=== PATIENT | male | born 1950 | race Caucasian/White ===

== ENCOUNTER 2021-05-24 22:39 | Inpatient (IN) | payer MEDICARE ==
[~2021-05-24] VITALS: Ht 170.2 cm; Wt 54.8 kg
[~2021-05-24 22:39] MED LIST: ALBU90OI INH; ANORO ELLIPTA1 EACH INH; Advil200 M1 PO; Albuterol2.5 MG/0.5 INH; BENZ100A PO; GUAI600T33 PO; LEVFLO500 PO; LEVO750 PO; NICO14TP TOP; Prednisone10 MG PO
[2021-05-24 23:46] LABS: Hematocrit 33.6 % (37.0-53.0); Hemoglobin 11.7 g/dL (13.5-17.5); Mean Corpuscular HGB 34.2 pg (26.0-34.0); Mean Corpuscular HGB Conc 34.8 g/dL (31.5-36.5); Mean Corpuscular Volume 98 fL (80-100); Mean Platelet Volume 9.6 fL (9.1-12.4); Platelet Count 357 K/mm3 (150-400); RDW Coefficient Variation 13.1 % (11.7-14.2); RDW Standard Deviation 46.6 fL (35.1-46.3); Red Blood Cell Count 3.42 M/mm3 (4.30-5.90); White Blood Cell Count 22.48 K/mm3 (4.00-11.30)
[2021-05-25 00:06] LABS: Alanine Aminotransfer (ALT/SGP 75 U/L (12-78); Albumin, Blood 2.1 g/dL (3.4-5.0); Albumin/Globulin Ratio 0.6 (0.8-1.8); Alk Phos 366 U/L (50-136); Anion Gap 14 mmol/L (6-16); Aspartate Aminotrans (AST/SGOT 156 U/L (12-37); Bilirubin, Total 1.5 mg/dL (0.1-1.0); Blood Urea Nitrogen 8 mg/dL (8-24); CO2, Blood 23 mmol/L (21-32); Calcium, Blood 7.3 mg/dL (8.5-10.1); Chloride, Blood 95 mmol/L (98-108); Creatinine, Blood 0.61 mg/dL (0.60-1.20); Globulin, Blood 3.8 g/dL (2.2-4.0); Glomerular Filtration Rate >60 (60-); Glucose, Blood 138 mg/dL (70-99); Potassium, Blood 3.7 mmol/L (3.5-5.5); Sodium, Blood 132 mmol/L (136-145); Total Protein, Blood 5.9 g/dL (6.4-8.2); Troponin I 0.019 ng/mL (0.000-0.040)
[2021-05-25 00:08] LABS: BAND PERCENT MAN 10 % (0-8); BASOPHILS PERCENT MAN 0 % (0-2); EOSINOPHILS ABSOLUTE MAN 0.22 K/mm3 (0.00-0.68); EOSINOPHILS PERCENT MAN 1 % (0-6); LYMPHOCYTES ABSOLUTE MAN 0.89 K/mm3 (0.84-5.20); LYMPHOCYTES PERCENT MAN 4 % (21-46); MONOCYTES ABSOLUTE MAN 1.34 K/mm3 (0.16-1.47); MONOCYTES PERCENT MAN 6 % (4-13); SEG NEUTROPHILS PERCENT MAN 79 % (41-73); TOTAL CELLS COUNTED 100
[2021-05-25 01:11] LABS: SARS-Cov-2 (COVID-19) PCR, MMC NEGATIVE (NEGATIVE)
--- NOTE | 2021-05-25 04:03 | NUR ---
PT ARRIVED TO ICU15 VIA GURNEY FROM ED. PT SLID FROM GURNEY TO BED WITHOUT ISSUE. PT ON 4L NC, WHICH IS BASELINE PER PT. HOME O2 WAS RECENTLY ORDERED FOR NIGHTTIME BUT HE HAS BEEN USING IT NIGHT AND DAY FOR INCREASING SOB. PT DENIES PAIN AT THIS TIME. HAS 22G TO L HAND, LR INFUSING. PT ALERT AND ORIENTED, ABLE TO MOVE ALL EXTREMITIES. PT INCONTINENT OF BOWEL AND BLADDER, BASELINE PER PT-USES ATTENDS AT HOME. LUNG CLEAR, FREQUENT CONGESTED, NONPRODUCTIVE COUGH. SKIN C/D/I.
[2021-05-25 05:05] LABS: BASOPHILS ABSOLUTE AUTO 0.03 K/mm3 (0.00-0.23); BASOPHILS PERCENT AUTO 0 % (0-2); EOSINOPHILS PERCENT AUTO 0 % (0-6); Hematocrit 28.4 % (37.0-53.0); IMMATURE GRAN ABSOLUTE AUTO 0.12 K/mm3 (0.00-0.10); IMMATURE GRAN PERCENT AUTO 1 % (0-1); LYMPHOCYTES PERCENT AUTO 3 % (21-46); MONOCYTES PERCENT AUTO 11 % (4-13); Mean Corpuscular HGB 34.8 pg (26.0-34.0); Mean Corpuscular HGB Conc 35.2 g/dL (31.5-36.5); Mean Corpuscular Volume 99 fL (80-100); Mean Platelet Volume 9.7 fL (9.1-12.4); NEUTROPHILS ABSOLUTE AUTO 14.92 K/mm3 (1.96-9.15); NEUTROPHILS PERCENT AUTO 85 % (41-73); Platelet Count 291 K/mm3 (150-400); RDW Coefficient Variation 13.2 % (11.7-14.2); RDW Standard Deviation 47.8 fL (35.1-46.3); Red Blood Cell Count 2.87 M/mm3 (4.30-5.90); White Blood Cell Count 17.57 K/mm3 (4.00-11.30)
[2021-05-25 05:23] LABS: Alanine Aminotransfer (ALT/SGP 61 U/L (12-78); Albumin, Blood 1.7 g/dL (3.4-5.0); Albumin/Globulin Ratio 0.5 (0.8-1.8); Alk Phos 291 U/L (50-136); Anion Gap 8 mmol/L (6-16); Aspartate Aminotrans (AST/SGOT 134 U/L (12-37); Bilirubin, Total 1.6 mg/dL (0.1-1.0); Blood Urea Nitrogen 10 mg/dL (8-24); Bun/Creatinine Ratio 17.8 (12.0-20.0); CO2, Blood 27 mmol/L (21-32); Calcium, Blood 6.8 mg/dL (8.5-10.1); Chloride, Blood 100 mmol/L (98-108); Creatinine, Blood 0.56 mg/dL (0.60-1.20); Globulin, Blood 3.2 g/dL (2.2-4.0); Glomerular Filtration Rate >60 (60-); Glucose, Blood 118 mg/dL (70-99); Potassium, Blood 3.5 mmol/L (3.5-5.5); Sodium, Blood 135 mmol/L (136-145); Total Protein, Blood 4.9 g/dL (6.4-8.2)
--- NOTE | 2021-05-25 08:52 | NUR ---
CARE OF PT ASSUMED AT 0700. PT AWAKE AND ALERT. PT DENIES C/O PAIN. PT DOES FEEL SOB AND HAS SOME DYSPNEA WITH SPEECH. SATS 98% ON 4L VIA N/C. PT HAS A NON-PRODUCTIVE COUGH. LUNGS VERY DIMINISHED T/O W FINE CRACKLES TO MERNA. PT HAS TREMOR TO ARMS, TREMOR NOTED IN BLE WELL. PT STATES THIS IS NORMAL.
[2021-05-25 10:53] LABS: SARS-Cov-2 (COVID-19) PCR, MMC NEGATIVE (NEGATIVE)
--- NOTE | 2021-05-25 12:02 | NUR ---
STAT COVID-[address] JEFF, RESULTS NEG. PT RESTING IN BED. DYSPNEA WITH ANY EXERTION. TREMOR SEVERE, PT AGAINSTATES THIS IS NORMAL. AFTER SENIOR FIRE PROTECTION ENGINEER ASSISTED WITH CLEANING PT(INCONT. OF STOOL) PT C/O WORSENING SOB, PT SITTING UP HIGH IN BED. SATS >95%. RT CALLED, PT RECEIVING UPDRAFT TX NOW.
--- NOTE | 2021-05-25 12:17 | NUR ---
PT WITH LABORED RESP. DIAPHORETIC, HEART RATE 130-140. SCATTERED WHEEZES T/O. DR JEFF CALLED AND NOTIFIED. PT TO BE PLACED ON BIPAP, STEROIDS TO BE ORDERED. RT NOTIFIED.
--- NOTE | 2021-05-25 15:58 | NUR ---
PT DOING MUCH BETTER THIS AFTERNOON. PT RESTING IN BED W O2 VIA N/C AT 4L. PT STILL EXPERIENCES DYSPNEA W EXERTION, BUT RESP ARE NO LONGER LABORED. BIPAP AT BEDSIDE NEEDED. HEART RATE 115-120, SINUS. BP STABLE.
--- NOTE | 2021-05-25 16:51 | NUR ---
PT HAS HAD ONLY ONE WET ATTENDS TODAY. BLADDER SCAN SHOWS NO URINE TO BLADDER. DR JEFF CALLED, 500CC NS BOLUS ORDERED
--- NOTE | 2021-05-25 18:23 | NUR ---
CONDOM CATH PLACED. BOLUS COMPLETE. PT INCONT. OF LOOSE STOOL. ATTENDS CHANGED. PT RESTING IN BED W O2 AT 4L, WAS ABLE TO EAT SOME DINNER. LR INFUSING AT 100CC/HR.
--- NOTE | 2021-05-25 19:53 | NUR ---
ASSUMED CARE PT SITTING UP IN BED WATCHING TV. DENIES PAIN AT THIS TIME. CURRENTLY ON 4L NC, SPO2 98%. BIPAP IN ROOM IF NEEDED FOR SOB. VSS, HR 90-100'S SR-ST ON MONITOR, SBP 100'S. PT DENIES SOB AT THIS TIME. ALERT AND ORIENTED, MOVES ALL EXTREMITIES-ABLE TO REPOSITION SELF NEEDED. DENIES NEEDS AT THIS TIME.
[2021-05-26 03:39] LABS: Source, Urine Clean Catch
[2021-05-26 03:47] LABS: Blood, Urine Neg (Neg); Glucose Qualitative, Urine Neg (Neg); Ketones, Urine 2+ (Neg); Leukocyte Esterase, Urine 1+ (Neg); Nitrite, Urine Neg (Neg); Protein, Urine 1+ (Neg); Specific Gravity, Urine 1.015 (1.003-1.022); Urobilinogen, Urine 1+ (Normal)
[2021-05-26 03:54] LABS: Appearance, Urine Turbid (Clear); Bilirubin, Urine 1+ (Neg); Color, Urine Red (P-Yellow)
[2021-05-26 03:54] LABS: BASOPHILS ABSOLUTE AUTO 0.01 K/mm3 (0.00-0.23); BASOPHILS PERCENT AUTO 0 % (0-2); EOSINOPHILS PERCENT AUTO 0 % (0-6); Hematocrit 28.5 % (37.0-53.0); Hemoglobin 9.9 g/dL (13.5-17.5); IMMATURE GRAN ABSOLUTE AUTO 0.06 K/mm3 (0.00-0.10); IMMATURE GRAN PERCENT AUTO 1 % (0-1); LYMPHOCYTES ABSOLUTE AUTO 0.22 K/mm3 (0.84-5.20); LYMPHOCYTES PERCENT AUTO 2 % (21-46); MONOCYTES ABSOLUTE AUTO 0.57 K/mm3 (0.16-1.47); MONOCYTES PERCENT AUTO 4 % (4-13); Mean Corpuscular HGB 35.2 pg (26.0-34.0); Mean Corpuscular HGB Conc 34.7 g/dL (31.5-36.5); Mean Corpuscular Volume 101 fL (80-100); Mean Platelet Volume 10.1 fL (9.1-12.4); NEUTROPHILS ABSOLUTE AUTO 12.22 K/mm3 (1.96-9.15); NEUTROPHILS PERCENT AUTO 93 % (41-73); Platelet Count 293 K/mm3 (150-400); RDW Coefficient Variation 13.2 % (11.7-14.2); RDW Standard Deviation 49.1 fL (35.1-46.3); Red Blood Cell Count 2.81 M/mm3 (4.30-5.90); White Blood Cell Count 13.08 K/mm3 (4.00-11.30)
[2021-05-26 03:55] LABS: Red Blood Cells, Urine Not Seen /hpf (0-2); White Blood Cells, Urine Rare /hpf (0-5)
[2021-05-26 03:56] LABS: Amorphous Heavy (0-Heavy); Bacteria Rare /hpf; Squamous Epithelial Cells Few /hpf (Few)
[2021-05-26 04:10] LABS: Anion Gap 4 mmol/L (6-16); Blood Urea Nitrogen 11 mg/dL (8-24); Bun/Creatinine Ratio 22.5 (12.0-20.0); CO2, Blood 29 mmol/L (21-32); Calcium, Blood 7.1 mg/dL (8.5-10.1); Chloride, Blood 101 mmol/L (98-108); Creatinine, Blood 0.49 mg/dL (0.60-1.20); Glomerular Filtration Rate >60 (60-); Glucose, Blood 144 mg/dL (70-99); Sodium, Blood 134 mmol/L (136-145)
--- NOTE | 2021-05-26 06:23 | NUR ---
SHIFT SUMMARY PT SITTING UP IN BED AFTER ATTENDS AND GOWN CHANGED THIS AM. PT REPORTS MILD SHORTNESS OF BREATH AFTER ROLLING SIDE TO SIDE, RR 17 SPO2 98%. HR 100'S SINUS TACH ON MONITOR, SBP 130'S. PT REMAINED ON 4L NC T/O NIGHT, DENIED NEED FOR BIPAP. CONDOM CATH IN PLACE DRAINING DARK ALEXIS URINE TO GRAVITY, MINIMAL OUTPUT THIS SHIFT. PT ABLE TO REPOSITION SELF NEEDED, EDUCATED ABOUT NEED TO FREQUENTLY MOVE SELF AROUND TO PREVENT SKIN BREAKDOWN. CALL LIGHT WITHIN REACH.
--- NOTE | 2021-05-26 10:00 | NUR ---
Care Assumed 0700 Pt is A/O X 4. Tremors noted in upper and lower extrems during movement. Pt states, "I have had tremors for years and my father had it too." Pt has incontinence of urine and bowels, per pt this is his baseline. Condom cath in place along with attends. Dark yellow ( 50 mls) of urine in bag. Frequent attends changes due to loose green BM. LR @ 100 ml/hr via Powerglide to ROSIE. Pt denies SOB or other pains. HR 90-110's, elevated when pt is eating or turning. NSR. VSS.
--- NOTE | 2021-05-26 16:43 | NUR ---
Report given to PCU 8 nurse, all questions answered. Will transfer once room cleaned. Pts NC decreased to 3 L, SPO2 99% at 4 L, change made at 1600. Tolerating well. Pt denies SOB. HR 90-110. VSS. at bedside. Condom cath remains in place, 250 urine output. Will transfer via wheelchair.
--- NOTE | 2021-05-26 17:46 | NUR ---
pt arrived via wc form icu pt oriented to room pcu 8 tele placed along with cont biox pt eating dinner pt had loose incont bm green in color chnaged attends
--- NOTE | 2021-05-26 17:54 | NUR ---
Tranfer to [facility] 8 All of patients belongings sent with patient, including medications. Transfer via wheelchair.
[2021-05-27 04:00] LABS: Hematocrit 28.9 % (37.0-53.0); Hemoglobin 9.9 g/dL (13.5-17.5); Mean Corpuscular HGB 34.3 pg (26.0-34.0); Mean Corpuscular HGB Conc 34.3 g/dL (31.5-36.5); Mean Corpuscular Volume 100 fL (80-100); Platelet Count 331 K/mm3 (150-400); RDW Standard Deviation 47.4 fL (35.1-46.3); Red Blood Cell Count 2.89 M/mm3 (4.30-5.90); White Blood Cell Count 14.53 K/mm3 (4.00-11.30)
[2021-05-27 04:21] LABS: Alanine Aminotransfer (ALT/SGP 64 U/L (12-78); Albumin, Blood 1.7 g/dL (3.4-5.0); Albumin/Globulin Ratio 0.5 (0.8-1.8); Alk Phos 228 U/L (50-136); Anion Gap 6 mmol/L (6-16); Aspartate Aminotrans (AST/SGOT 144 U/L (12-37); Bilirubin, Total 1.1 mg/dL (0.1-1.0); Blood Urea Nitrogen 16 mg/dL (8-24); Bun/Creatinine Ratio 32.1 (12.0-20.0); CO2, Blood 28 mmol/L (21-32); Calcium, Blood 7.2 mg/dL (8.5-10.1); Chloride, Blood 100 mmol/L (98-108); Globulin, Blood 3.3 g/dL (2.2-4.0); Glomerular Filtration Rate >60 (60-); Glucose, Blood 118 mg/dL (70-99); Sodium, Blood 134 mmol/L (136-145)
--- NOTE | 2021-05-27 07:55 | NUR ---
SHIFT SUMMARY PT AOX4 THROUGH SHIFT. ON TELE, MAINTAINED LOW 100'S SINUS TACH UNTIL EARLY AM WHEN PT SATS UP AT BEDSIDE AND BECAME SEVERELY DYSPNEIC AND HR INCREASED RAPIDLY FROM LOW 100'S TO 130'S-150'S. AUGUTSUS RT AT BEDSIDE DURING EPISODE TO ADMIN ROUTINE SCHEDULED BREATHING TX. THIS RN HELPS PT BACK TO LYING IN BED AND HR AND BREATHING IMPROVE SHORTLY AFTER REPOSITIONED AND BRIEF/LINEN CHANGE D/T BM. PT DENIES CP THROUGH SHIFT. ON 3 L VIA NC, SATS 96%. LR INFUSING AT 100 MLS/HR PER ORDERS. CONDOM CATH CHANGED BY THIS RN D/T LEAKING, DRAINING CLEAR YELLOW URINE.
--- NOTE | 2021-05-27 19:36 | NUR ---
Duncan said that he had some shortness of breath twice today. Continuous IVF were discontinued this morning at the time that his IV Levaquin was hung, and spoke with Dr. Pemberton about the positive I&O. IV lasix was ordered and given this evening. Heart rate increased to 120s about time that the pt was eating dinner while sitting up in bed; otherwise today it has stayed less than 110.
[2021-05-28 04:49] LABS: Hematocrit 28.1 % (37.0-53.0); Hemoglobin 9.6 g/dL (13.5-17.5); Mean Corpuscular HGB 34.4 pg (26.0-34.0); Mean Corpuscular HGB Conc 34.2 g/dL (31.5-36.5); Mean Corpuscular Volume 101 fL (80-100); Mean Platelet Volume 9.9 fL (9.1-12.4); Platelet Count 340 K/mm3 (150-400); RDW Coefficient Variation 13.2 % (11.7-14.2); RDW Standard Deviation 48.9 fL (35.1-46.3); Red Blood Cell Count 2.79 M/mm3 (4.30-5.90); White Blood Cell Count 13.64 K/mm3 (4.00-11.30)
[2021-05-28 05:08] LABS: Albumin, Blood 1.8 g/dL (3.4-5.0); Anion Gap 5 mmol/L (6-16); Blood Urea Nitrogen 18 mg/dL (8-24); Bun/Creatinine Ratio 33.1 (12.0-20.0); CO2, Blood 29 mmol/L (21-32); Calcium, Blood 7.3 mg/dL (8.5-10.1); Chloride, Blood 102 mmol/L (98-108); Creatinine, Blood 0.54 mg/dL (0.60-1.20); Glomerular Filtration Rate >60 (60-); Glucose, Blood 121 mg/dL (70-99); Phosphorus, Blood 2.4 mg/dL (2.5-4.9); Potassium, Blood 3.8 mmol/L (3.5-5.5); Sodium, Blood 136 mmol/L (136-145)
--- NOTE | 2021-05-28 07:59 | NUR ---
SHIFT SUMMARY PT AOX4, SR 90'S, DENIES CP, SATS 95-98% ON 3 L VIA NC. BREATHING APPEARS LESS LABORED THAN LAST NOC. PT REPORTS SOME SOB AT TIMES, DYSPNEIC W/SOME EXERTION IN BED. STATES BREATHING OTHERWISE FEELS BETTER. PT APPEARS RESTFUL T/O NIGHT. CONDOM CATH CHANGED AND DRAINING ALEXIS URINE. NO EPISODES OF INCONTINENCE OF STOOL. LINES SALINE LOCKED.
--- NOTE | 2021-05-28 08:00 | NUR ---
PT LAYING IN BED WATCHING TV, HE IS TREMOLOUS, A/OX3, PLEASANT AND COOPERATIVE WITH CARE, FOLLOWS COMMANDS WELL, DENIES PAIN, LUNGS HAVE SOME WHEEZING T/O, RESP EVEN AND UNLABORED, NO COUGH NOTED, HRR, TELE IN PLACE RUNNING SR PER MONITOR, SEE STRIP, NO EDEMA NOTED, ppp+1, CAP REFILL <3SEC, VS STABLE, AFEBRILE, IV SITE IS POWER GLIDE TO ROSIE, SITE CLEAR AND PATENT, BTX4, ABD FLAT SOFT NONTENDER, VOIDS WITHOUT DIFF, SKIN C/W/D, MAEW, ALEXANDRA, CALL LIGHT IN REACH.
--- NOTE | 2021-05-28 16:51 | NUR ---
PT HAS BEEN TX TO SURGICAL FLOOR, HE IS BEING TRANSFERED VIA WHEELCHAIR, HE INFORMED HIS . ALL BELONGINGS WENT WITH HIM.
--- NOTE | 2021-05-28 17:05 | NUR ---
pt transferred to room via wheelchair, oriented to room, vss, a/o x 4, pleasant/cooperative, sitting up in chair with warm blanket around shoulders, call light within reach
--- NOTE | 2021-05-28 17:13 | NUR ---
pt's visiting in room
--- NOTE | 2021-05-29 03:16 | NUR ---
EACH TIME PT OOB FOR BSC TACHY UP TO 140-150'S AND SUSTAINING WHILE UP,BUT SETTLES BACK DOWN WHEN RESTING IN BED.PT REPORTS INCREASED SOB WITH ANY ACTIVITY CALLED DR CLOUD AND ADVISED OF ABOVE WITH NO NEW ORDERS RECEIVED.
[2021-05-29 04:19] LABS: Alanine Aminotransfer (ALT/SGP 128 U/L (12-78); Albumin/Globulin Ratio 0.6 (0.8-1.8); Alk Phos 220 U/L (50-136); Anion Gap 6 mmol/L (6-16); Aspartate Aminotrans (AST/SGOT 172 U/L (12-37); Blood Urea Nitrogen 17 mg/dL (8-24); Bun/Creatinine Ratio 32.8 (12.0-20.0); CO2, Blood 29 mmol/L (21-32); Calcium, Blood 7.5 mg/dL (8.5-10.1); Chloride, Blood 102 mmol/L (98-108); Creatinine, Blood 0.52 mg/dL (0.60-1.20); Globulin, Blood 3.2 g/dL (2.2-4.0); Glomerular Filtration Rate >60 (60-); Glucose, Blood 157 mg/dL (70-99); Potassium, Blood 3.9 mmol/L (3.5-5.5); Sodium, Blood 137 mmol/L (136-145); Total Protein, Blood 5.2 g/dL (6.4-8.2)
--- NOTE | 2021-05-29 08:01 | NUR ---
SUMMARY NO ACUTE CHANGES
--- NOTE | 2021-05-29 09:59 | NUR ---
0[facility] report from previous shift RN alex, pt asleep in bed, bed in lowest position, bed rails up x 2, call light within reach, pt a/o x 4, pleasant/cooperative, SOB with exertion 0945- dr modi rounding on pt with doggy daycare activities director. awaiting x-ray study
--- NOTE | 2021-05-29 18:15 | NUR ---
shift summary: vss, no acute changes, pt remaines pleasant/cooperative. pt tolerated PO intake with no n/v. incontinent of bladder in attends. per telemetry pt remains in sinus tachycardia ranging from 115-140, occasional up to 150s, during imaging study up to 175. notified pt remains SOB with any exertion, has been up in chair for the >4 hr this shift, has worked with PT. pt denies pain. lungs remain coarse, unprobuctive cough, expiratory wheezing L side
[2021-05-30 04:40] LABS: Albumin, Blood 2.1 g/dL (3.4-5.0); Anion Gap 7 mmol/L (6-16); Blood Urea Nitrogen 15 mg/dL (8-24); Bun/Creatinine Ratio 27.8 (12.0-20.0); CO2, Blood 30 mmol/L (21-32); Calcium, Blood 7.5 mg/dL (8.5-10.1); Chloride, Blood 101 mmol/L (98-108); Creatinine, Blood 0.54 mg/dL (0.60-1.20); Glomerular Filtration Rate >60 (60-); Glucose, Blood 146 mg/dL (70-99); Phosphorus, Blood 4.3 mg/dL (2.5-4.9); Potassium, Blood 3.2 mmol/L (3.5-5.5); Sodium, Blood 138 mmol/L (136-145)
--- NOTE | 2021-05-30 05:40 | NUR ---
SHIFT SUMMARY PATIENT ALERT AND ORIENTED WHEN AWAKE. SBA WITH FWW TO BATHROOM. 4L O2 VIA NC AT BASELINE. LUNG SOUNDS COARSE THROUGHOUT. OCCASIONALLY INC OF BOWEL. PULL UPS IN PLACE. TELE SINUS TACH 120S. RT FOR NEB TREATMENTS. MANUELITO REPORT TO DAY SHIFT RN.
[2021-05-30 09:12] LABS: Albumin, Blood 2.1 g/dL (3.4-5.0); Albumin/Globulin Ratio 0.6 (0.8-1.8); Bilirubin, Direct 0.5 mg/dL (0.0-0.3); Bilirubin, Indirect 0.5 mg/dL (0.1-0.7); Globulin, Blood 3.3 g/dL (2.2-4.0); Total Protein, Blood 5.4 g/dL (6.4-8.2)
--- NOTE | 2021-05-30 14:56 | NUR ---
Echocardiogram completed.
--- NOTE | 2021-05-30 18:07 | NUR ---
SHIFT SUMMARY PT A&OX4, VSS, TELE 110-120 BPM, 3LNC-MODIFIED BY RT; RT REP PT SHOULD HAVE HOME OXYGEN EVAL ON DAY OF DC TO CONFIRM 3L WORKS WITH EXERTION. AMBULATING W/FWW & SBA TO BRP, VOIDING WELL, BM X2. ECHO DONE TODAY, ALONG WITH ABD ULTRASOUND. WILL REPORT TO ONCOMING NOC RN.
[2021-05-31 05:21] LABS: Alanine Aminotransfer (ALT/SGP 187 U/L (12-78); Albumin/Globulin Ratio 0.7 (0.8-1.8); Alk Phos 186 U/L (50-136); Anion Gap 4 mmol/L (6-16); Aspartate Aminotrans (AST/SGOT 188 U/L (12-37); Bilirubin, Direct 0.4 mg/dL (0.0-0.3); Bilirubin, Indirect 0.5 mg/dL (0.1-0.7); Bilirubin, Total 0.9 mg/dL (0.1-1.0); Blood Urea Nitrogen 14 mg/dL (8-24); Bun/Creatinine Ratio 27.1 (12.0-20.0); CO2, Blood 32 mmol/L (21-32); Calcium, Blood 7.8 mg/dL (8.5-10.1); Chloride, Blood 102 mmol/L (98-108); Creatinine, Blood 0.52 mg/dL (0.60-1.20); Globulin, Blood 2.9 g/dL (2.2-4.0); Glomerular Filtration Rate >60 (60-); Glucose, Blood 85 mg/dL (70-99); Potassium, Blood 3.9 mmol/L (3.5-5.5); Sodium, Blood 138 mmol/L (136-145); Total Protein, Blood 4.9 g/dL (6.4-8.2)
--- NOTE | 2021-05-31 05:59 | NUR ---
SHIFT SUMMARY PATIENT SLEPT OFF AND ON THROUGHOUT SHIFT. ORIENTED WHEN AWAKE. SBA WITH FWW TO BATHROOM. SOB WITH EXP WHEEZE, TACHY ON TELEMETRY. 3L 02 VIA NC. LASIX PRESCRIBED FOR POSSIBLE FLUID OVERLOAD WHILE CHF IS INVESTIGATED BY HOSPITALIST. HOME O2 EVAL NEEDED. RT FOLLOWING FOR BREATHING TREATMENTS. VOIDING WELL, TOLERATING REGULAR DIET AND FLUIDS.
[2021-05-31 07:10] LABS: HBSAG SCREEN Negative (Negative); HEP A AB, IGM Negative (Negative); HEP B CORE AB, IGM Negative (Negative); HEP C VIRUS AB <0.1 (0.0-0.9)
--- NOTE | 2021-05-31 16:03 | NUR ---
SUMMARY: PT IS A/O, VSS. TELE WNL TODAY, HR CONTINUES TO INCREASE WITH ACTIVITY TO 140-[address] PIMENTEL AWARE, PT DENIES CP/PRESSURE. PER CENTRIFUGE OPERATOR, PT RECOVERS WELL AND HAS NOT SUSTAINED HR ABOVE 110. PT DOES GET SOB WITH EXERTION, PT STABLE ON 3L O2 AT THIS TIME. DENIES ANY SPUTUM PRODUCTION. PT ABLE TO WORK WITH THERAPY. LASIX GIVEN X1. PER PT, EDEMA IMPROVING IN LEGS. NO ACUTE SAFETY CONCERNS, WILL CTM
--- NOTE | 2021-06-01 03:43 | NUR ---
SHIFT SUMMARY S/P SEPTIC SHOCK SECONDARY TO PNEUMONIA, A/O X4, VSS, TOLERATING DIET, DENIES PAIN, SBA TO BATHROOM, VOIDING, NO ACUTE EVENTS THIS SHIFT. CALL LIGHT IN REACH, WILL CTM AND REPORT TO DAY RN.
[2021-06-01 06:28] LABS: Hematocrit 28.3 % (37.0-53.0); Hemoglobin 9.5 g/dL (13.5-17.5); Mean Corpuscular HGB 34.2 pg (26.0-34.0); Mean Corpuscular HGB Conc 33.6 g/dL (31.5-36.5); Mean Corpuscular Volume 102 fL (80-100); Mean Platelet Volume 10.4 fL (9.1-12.4); Platelet Count 307 K/mm3 (150-400); RDW Standard Deviation 52.2 fL (35.1-46.3); Red Blood Cell Count 2.78 M/mm3 (4.30-5.90); White Blood Cell Count 12.11 K/mm3 (4.00-11.30)
[2021-06-01 06:51] LABS: Alanine Aminotransfer (ALT/SGP 209 U/L (12-78); Albumin, Blood 1.9 g/dL (3.4-5.0); Albumin/Globulin Ratio 0.7 (0.8-1.8); Alk Phos 179 U/L (50-136); Anion Gap 2 mmol/L (6-16); Aspartate Aminotrans (AST/SGOT 171 U/L (12-37); Bilirubin, Total 1.1 mg/dL (0.1-1.0); Blood Urea Nitrogen 14 mg/dL (8-24); Bun/Creatinine Ratio 23.3 (12.0-20.0); CO2, Blood 37 mmol/L (21-32); Chloride, Blood 97 mmol/L (98-108); Globulin, Blood 2.7 g/dL (2.2-4.0); Glomerular Filtration Rate >60 (60-); Glucose, Blood 81 mg/dL (70-99); Sodium, Blood 136 mmol/L (136-145); Total Protein, Blood 4.6 g/dL (6.4-8.2)
[2021-06-01] MEDS ORDERED: METO25 PO (15:45)
[2021-06-01] MEDS ORDERED: K-Dur 20 meq T20 MEQ PO (15:47)
[2021-06-01] MEDS ORDERED: Prednisone10 MG PO (15:47)
[2021-06-01] MEDS ORDERED: LIQUACEL PO (15:55)
[2021-06-01] MEDS ORDERED: ALBU2.5V5 INH (15:56)
[2021-06-01] MEDS ORDERED: FURO40 PO (15:57)
[2021-06-01] MEDS ORDERED: BUDE.25 INH (15:57)
--- NOTE | 2021-06-01 18:08 | NUR ---
DISCHARGE: PACKET PRINTED AND PT EDUCATED. Pegg'd DC'D WNL. MEDS FAXED TO [facility] IN [place]. PT LEFT UNIT VIA WHEELCHAIR AT ABOUT 1720 WITH OSWALDO HARTMAN.
--- NOTE | 2021-06-01 18:10 | NUR ---
EDIT TO MED REC: EDIT FOR KLAUDIA AND PROBIOTIC FOR PT MED REC FAXED TO [facility] IN [place] AT THIS TIME.
--- NOTE | 2021-06-01 18:13 | NUR ---
PT DAUGHTER MADE AWARE OF ADDED MEDICATIONS TO PT MED REC AT 1813
== END 2021-06-01 17:45 | disposition home health service (06) | DRG 871 ==
LOC: ER 22:39 → ERHOLD 05-25 03:19 → ICUW 05-25 03:19 → PCU 05-26 17:43 → SURS 05-28 16:43
PROVIDERS: Internal Medicine; Student in an Organized Health Care Education/Training Program; ADMIT Family Medicine
DX: A41.9 Sepsis, unspecified organism (principal); J18.9 Pneumonia, unspecified organism; R65.21 Severe sepsis with septic shock; I50.31 Acute diastolic (congestive) heart failure; J44.0 Chronic obstructive pulmonary disease with (acute) lower respiratory infection; J44.1 Chronic obstructive pulmonary disease with (acute) exacerbation; E87.1 Hypo-osmolality and hyponatremia; J96.11 Chronic respiratory failure with hypoxia; E44.0 Moderate protein-calorie malnutrition; R64 Cachexia; E87.2 Acidosis; Z20.822 Contact with and (suspected) exposure to COVID-19; R74.01 Elevation of levels of liver transaminase levels; E88.09 Other disorders of plasma-protein metabolism, not elsewhere classified; D64.9 Anemia, unspecified; G25.0 Essential tremor; T36.8X5A Adverse effect of other systemic antibiotics, initial encounter; K76.0 Fatty (change of) liver, not elsewhere classified; E87.6 Hypokalemia; Z90.89 Acquired absence of other organs; Z87.891 Personal history of nicotine dependence; Z99.81 Dependence on supplemental oxygen; Z79.899 Other long term (current) drug therapy
CPT/HCPCS: 36415; 71045; 71046; 71260; 74177; 76705; 80048; 80053; 80069; 80074; 80076; 81001; 82248; 82947; 83605; 83880; 84100; 84484; 85025; 85027; 87040; 87086; 87449; 93005; 93010; 93306; 94640; 94660; 94664; 94760; 94762; 96365; 97110; 97116; 97162; 97530; 99285-25; A9270; C1751; J0696; J1650; J1940; J1956; J2060; J2920; J2930; J7030; J7050; J7120; J7512; Q9967; U0004

== ENCOUNTER 2021-11-21 15:14 | Inpatient (IN) | payer MEDICARE ==
[~2021-11-21] VITALS: Ht 170.2 cm; Wt 45.9 kg
[~2021-11-21 15:14] MED LIST changes: +ALBU2.5V5 INH; +BUDE.25 INH; +FURO40 PO; +K-Dur 20 meq T20 MEQ PO; +LIQUACEL PO; +METO25 PO
[2021-11-21 16:02] LABS: BASOPHILS ABSOLUTE AUTO 0.07 K/mm3 (0.00-0.23); BASOPHILS PERCENT AUTO 0 % (0-2); EOSINOPHILS ABSOLUTE AUTO 0.01 K/mm3 (0.00-0.68); EOSINOPHILS PERCENT AUTO 0 % (0-6); Hematocrit 31.8 % (37.0-53.0); Hemoglobin 10.7 g/dL (13.5-17.5); IMMATURE GRAN ABSOLUTE AUTO 0.15 K/mm3 (0.00-0.10); IMMATURE GRAN PERCENT AUTO 1 % (0-1); LYMPHOCYTES ABSOLUTE AUTO 0.66 K/mm3 (0.84-5.20); LYMPHOCYTES PERCENT AUTO 3 % (21-46); MONOCYTES ABSOLUTE AUTO 1.72 K/mm3 (0.16-1.47); MONOCYTES PERCENT AUTO 7 % (4-13); Mean Corpuscular HGB 33.1 pg (26.0-34.0); Mean Corpuscular HGB Conc 33.6 g/dL (31.5-36.5); Mean Corpuscular Volume 99 fL (80-100); Mean Platelet Volume 10.4 fL (9.1-12.4); NEUTROPHILS ABSOLUTE AUTO 20.67 K/mm3 (1.96-9.15); NEUTROPHILS PERCENT AUTO 89 % (41-73); Platelet Count 737 K/mm3 (150-400); RDW Coefficient Variation 13.7 % (11.7-14.2); RDW Standard Deviation 49.6 fL (35.1-46.3); Red Blood Cell Count 3.23 M/mm3 (4.30-5.90); White Blood Cell Count 23.28 K/mm3 (4.00-11.30)
[2021-11-21 16:44] LABS: Alanine Aminotransfer (ALT/SGP 22 U/L (12-78); Albumin/Globulin Ratio 0.4 (0.8-1.8); Alk Phos 245 U/L (50-136); Anion Gap 11 mmol/L (6-16); Aspartate Aminotrans (AST/SGOT 103 U/L (12-37); Bilirubin, Total 1.8 mg/dL (0.1-1.0); Blood Urea Nitrogen 13 mg/dL (8-24); Bun/Creatinine Ratio 19.3 (12.0-20.0); CO2, Blood 24 mmol/L (21-32); Calcium, Blood 8.2 mg/dL (8.5-10.1); Chloride, Blood 97 mmol/L (98-108); Creatinine, Blood 0.67 mg/dL (0.60-1.20); Globulin, Blood 4.9 g/dL (2.2-4.0); Glomerular Filtration Rate >60 (60-); Glucose, Blood 157 mg/dL (70-99); Sodium, Blood 132 mmol/L (136-145); Total Protein, Blood 6.9 g/dL (6.4-8.2)
[2021-11-21 17:09] LABS: Influenza A, PCR NEGATIVE (NEGATIVE); Influenza B, PCR NEGATIVE (NEGATIVE); Resp Syncytial Virus, PCR NEGATIVE (NEGATIVE)
[2021-11-21 17:47] LABS: SARS-Cov-2 (COVID-19) PCR, MMC POSITIVE (NEGATIVE)
--- NOTE | 2021-11-21 23:11 | NUR ---
ADMIT NOTE 71 YR OLD MALE ADMITTED TO FLOOR FROM THE ED WITH DV OF COVID 19. ALERT AND ORIENTED. IV ANTIBIOTICS, ECT INFUSING. ORIENTED TO USE OF CALL LIGH, CALL LIGHT IN REACH. INSTRUCTED NOT TO GET OUT OF BED WITHOUT STAFF AT BEDESIDE FIRST. PT APPEARS VERY MALNOURISHED. VOICED SEVERE POOR APPETITE. ISOLATION PRECAUTIONS INITIATED.
--- NOTE | 2021-11-22 01:48 | NUR ---
RN SCHOOL REPORTS INTERMITTENT FAST AND SLOW HR. PT ASYMPTOMATIC, VOICED FEELIING OK. WILL MONITOR
--- NOTE | 2021-11-22 04:12 | NUR ---
GENERAL MAINTENANCE HELPER SUMMARY WAS ADMITTED EARLIER WITH DX OF SEPSIS, PNEUMONIA AND COVID 19 POSITIVE. STATED HADNT BEEN VACCINATED AND IS A REGULAR SMOKER. PLACED ON ISOLATION PRECAUTIONS. O2 PER NC AT 3L/MIN - BASE LINE. ORIENTED TO USE OF CALL LIGHT AND NOT TO GET OUT OF BED DUE TO POSSIBLE FALLS DUE TO WEAKNESS. HAS BEEN RESTING QUIETLY WITH FEW INTERRUPTIONS SINCE HS. IVF, ANTIBIOTICS AND ANTIVIRAL MEDS ADMINISTERED - SEE DEC FOR DETAILS. CALL LIGHT IN REACH
[2021-11-22 05:19] LABS: Hematocrit 28.3 % (37.0-53.0); Hemoglobin 9.4 g/dL (13.5-17.5); Mean Corpuscular HGB 32.9 pg (26.0-34.0); Mean Corpuscular HGB Conc 33.2 g/dL (31.5-36.5); Mean Corpuscular Volume 99 fL (80-100); Mean Platelet Volume 10.5 fL (9.1-12.4); Platelet Count 530 K/mm3 (150-400); RDW Coefficient Variation 13.7 % (11.7-14.2); RDW Standard Deviation 49.9 fL (35.1-46.3); Red Blood Cell Count 2.86 M/mm3 (4.30-5.90); White Blood Cell Count 15.06 K/mm3 (4.00-11.30)
[2021-11-22 05:55] LABS: Anion Gap 7 mmol/L (6-16); Blood Urea Nitrogen 14 mg/dL (8-24); CO2, Blood 27 mmol/L (21-32); Chloride, Blood 99 mmol/L (98-108); Creatinine, Blood 0.88 mg/dL (0.60-1.20); Glomerular Filtration Rate >60 (60-); Glucose, Blood 131 mg/dL (70-99); Potassium, Blood 4.3 mmol/L (3.5-5.5); Sodium, Blood 133 mmol/L (136-145)
--- NOTE | 2021-11-22 17:31 | NUR ---
PATIENT IS AWAKE,ALET AND ORIENTED TIMES THREE. PATIENT IS ON OYGEN 2L NC O2 SAT 100%. PATIENT LE PAIN. PATIENT GRANDDAUGHTER WAS UPDATED PER PATIENT REQUEST.
--- NOTE | 2021-11-23 04:34 | NUR ---
PT RESTING IN BED. REMAINS IN COVID ISOLATION. CONTINUE REMDESIVIR AND IV ANTIBIOTICS. PULM AND PALLIATIVE CARE CONSULTS. REMAINS ON O2 3L NC. STILL NEED SPUTUM SAMPLE. PT REQUESTED PRN BREATHING TREATMENTS, STATED HE DOES THEM AT HOME 3-4 TIMES A DAY. UP TO BSC, INDEPENDENTLY. CONTINUE POC.
[2021-11-23 08:08] LABS: BASOPHILS ABSOLUTE AUTO 0.02 K/mm3 (0.00-0.23); BASOPHILS PERCENT AUTO 0 % (0-2); EOSINOPHILS ABSOLUTE AUTO 0.01 K/mm3 (0.00-0.68); EOSINOPHILS PERCENT AUTO 0 % (0-6); Hematocrit 26.8 % (37.0-53.0); Hemoglobin 8.8 g/dL (13.5-17.5); IMMATURE GRAN ABSOLUTE AUTO 0.09 K/mm3 (0.00-0.10); IMMATURE GRAN PERCENT AUTO 1 % (0-1); LYMPHOCYTES ABSOLUTE AUTO 0.44 K/mm3 (0.84-5.20); LYMPHOCYTES PERCENT AUTO 3 % (21-46); MONOCYTES ABSOLUTE AUTO 1.27 K/mm3 (0.16-1.47); MONOCYTES PERCENT AUTO 7 % (4-13); Mean Corpuscular HGB 32.6 pg (26.0-34.0); Mean Corpuscular HGB Conc 32.8 g/dL (31.5-36.5); Mean Corpuscular Volume 99 fL (80-100); Mean Platelet Volume 10.7 fL (9.1-12.4); NEUTROPHILS ABSOLUTE AUTO 15.94 K/mm3 (1.96-9.15); NEUTROPHILS PERCENT AUTO 90 % (41-73); Platelet Count 576 K/mm3 (150-400); RDW Coefficient Variation 13.8 % (11.7-14.2); RDW Standard Deviation 49.5 fL (35.1-46.3); White Blood Cell Count 17.77 K/mm3 (4.00-11.30)
[2021-11-23 08:28] LABS: Anion Gap 10 mmol/L (6-16); Blood Urea Nitrogen 23 mg/dL (8-24); Bun/Creatinine Ratio 28.4 (12.0-20.0); CO2, Blood 24 mmol/L (21-32); Calcium, Blood 7.8 mg/dL (8.5-10.1); Chloride, Blood 101 mmol/L (98-108); Creatinine, Blood 0.81 mg/dL (0.60-1.20); Glomerular Filtration Rate >60 (60-); Glucose, Blood 102 mg/dL (70-99); Potassium, Blood 3.3 mmol/L (3.5-5.5); Sodium, Blood 135 mmol/L (136-145); Vancomycin, Trough 13.9 ug/mL (5.0-10.0)
--- NOTE | 2021-11-23 08:53 | NUR ---
Call phamarcy to clarify vanco range of 13.9 reading as high in chart, per pharmacist Vikash state that the range is 15-20. Rishi states the dose is safe to give.
--- NOTE | 2021-11-23 11:08 | NUR ---
CALL PLACE TO IN REFERENCE TO PATIENT POTASSIUM OF 3.3 AND PATIENT REQUEST TO HAVE TELE MONITOR REMOVED, STATES THAT SHE WILL REPLACE POTASSIUM AND TELE MONITOR NEED TO REMAIN IN PLACE.
--- NOTE | 2021-11-23 16:47 | NUR ---
PATIENT IS AWAKE,ALERT AND ORIENTED TIMES THREE. DENIES PAIN. PATIENT REFUSED TO SIT IN CHAIR TODAY. PATIENT IS CURRENTLY ON ROOM AIR OXYGEN SATURATION OF 96%.DR. OLIVIER ASSESS PATIENT AT BEDSIDE. NO ACUTE DISTRESS NOTED,NO NEW ORDER RECEIVED.
--- NOTE | 2021-11-24 03:54 | NUR ---
SHIFT SUMMARY NO ACUTE CHANGES TO REPORT THIS SHIFT. PT MAINTAINING SATS IN THE 90'S ON 3L. OCCASIONAL DRY COUGH. PT STILL HAVING DIARRHEA BUT REPORTS THAT IT IS EASING UP AND REFUSES MEDICATION FOR IT. IV ANTIBIOTICS AND REMDESIVER PER ORDERS. RESTFUL NIGHT. VITALS STABLE. BED IN LOWEST POSITION, CALL LIGHT WITHIN REACH.
[2021-11-24 07:32] LABS: BASOPHILS ABSOLUTE AUTO 0.01 K/mm3 (0.00-0.23); BASOPHILS PERCENT AUTO 0 % (0-2); EOSINOPHILS ABSOLUTE AUTO 0.01 K/mm3 (0.00-0.68); EOSINOPHILS PERCENT AUTO 0 % (0-6); Hematocrit 28.3 % (37.0-53.0); Hemoglobin 9.2 g/dL (13.5-17.5); IMMATURE GRAN ABSOLUTE AUTO 0.09 K/mm3 (0.00-0.10); IMMATURE GRAN PERCENT AUTO 1 % (0-1); LYMPHOCYTES ABSOLUTE AUTO 0.53 K/mm3 (0.84-5.20); LYMPHOCYTES PERCENT AUTO 3 % (21-46); MONOCYTES ABSOLUTE AUTO 1.13 K/mm3 (0.16-1.47); MONOCYTES PERCENT AUTO 7 % (4-13); Mean Corpuscular HGB 32.2 pg (26.0-34.0); Mean Corpuscular HGB Conc 32.5 g/dL (31.5-36.5); Mean Corpuscular Volume 99 fL (80-100); Mean Platelet Volume 10.5 fL (9.1-12.4); NEUTROPHILS PERCENT AUTO 89 % (41-73); Platelet Count 577 K/mm3 (150-400); RDW Coefficient Variation 14.2 % (11.7-14.2); RDW Standard Deviation 51.1 fL (35.1-46.3); Red Blood Cell Count 2.86 M/mm3 (4.30-5.90); White Blood Cell Count 15.87 K/mm3 (4.00-11.30)
[2021-11-24 07:55] LABS: Anion Gap 7 mmol/L (6-16); Blood Urea Nitrogen 24 mg/dL (8-24); Bun/Creatinine Ratio 29.2 (12.0-20.0); CO2, Blood 26 mmol/L (21-32); Calcium, Blood 7.9 mg/dL (8.5-10.1); Chloride, Blood 104 mmol/L (98-108); Creatinine, Blood 0.82 mg/dL (0.60-1.20); Glomerular Filtration Rate >60 (60-); Glucose, Blood 83 mg/dL (70-99); Potassium, Blood 3.7 mmol/L (3.5-5.5); Sodium, Blood 137 mmol/L (136-145); Vancomycin, Trough 15.1 ug/mL (5.0-10.0)
[2021-11-24 08:10] LABS: HIV AB/P24 AG SCREEN Non Reactive (Non Reactive)
--- NOTE | 2021-11-24 17:06 | NUR ---
SHIFT SUMMARY PT ADMITTED FOR SEPSIS BUT IS ALSO COVID POSITIVE. PT HAS COPD AND IS ON 3 LITERS O2 AT BASELINE. PT'S LUNGS ARE CLEAR BUT DIM. NO COUGH NOTED AND UNABLE TO OBTAIN SPUTUM SAMPLE. AWAITING MRSA SAMPLE TO COME BACK IN ORDER TO DC. PT HAVING DIARRHEA AND TREATED PER EMR. VSS. WILL HOPEFULLY DC HOME TOMORROW.
--- NOTE | 2021-11-25 04:09 | NUR ---
PT IS ALERT AND ORIENTED X4. ON 3 LITERS OF O2 BASELINE. NO COUGH. NO SPUTUM OUTPUT. NO C/O PAIN. TELE: SNR WITH PAC AT 87. VOIDING. TAKING PO WELL.
[2021-11-25 10:12] LABS: Hematocrit 26.1 % (37.0-53.0); Hemoglobin 8.7 g/dL (13.5-17.5)
[2021-11-25 14:14] LABS: Stool Occult Blood Guaiac 1 Neg (Neg)
--- NOTE | 2021-11-25 14:57 | NUR ---
LABS: PT H+H STABLE, GUIAC STOOL NEGATIVE. MD NOTIFIED, DC ORDERS ACKNOWLEDGED.
[2021-11-25] MEDS ORDERED: AMOCLA875 PO (15:22)
[2021-11-25] MEDS ORDERED: DECADRON6 M1 PO (15:23)
[2021-11-25] MEDS ORDERED: VISBIOME 112.51 EACH PO (15:26)
--- NOTE | 2021-11-25 16:21 | NUR ---
DISCHARGE: PT DC TO HOME AT THIS TIME. IV DC'D X2. MEDICATIONS FAXED TO PHARMACY. PT VERBALIZED UNDERSTANDING OF INSTRUCTIONS, FOLLOW UP, PROBLEMS TO REPORT AND MEDICATIONS. PT LEFT VIA WHEELCHAIR TO CAR WITH BELONGINGS.
== END 2021-11-25 16:05 | disposition home or self-care (01) | DRG 871 ==
LOC: ER 15:14 → MEDS 22:18 → ER 22:18 → MEDS 22:25
PROVIDERS: Emergency Medicine; Family Medicine; Pharmacist; ADMIT Internal Medicine
PROC: 8E0ZXY6 Isolation (ICD-10-PCS; principal; 2021-11-21)
PROC: 3E0DX3Z Introduction of Anti-inflammatory into Mouth and Pharynx, External Approach (ICD-10-PCS; 2021-11-21)
PROC: XW033E5 Introduction of Remdesivir Anti-infective into Peripheral Vein, Percutaneous Approach, New Technology Group 5 (ICD-10-PCS; 2021-11-21)
DX: A41.89 Other specified sepsis (principal); U07.1 COVID-19; J96.01 Acute respiratory failure with hypoxia; E43 Unspecified severe protein-calorie malnutrition; J96.21 Acute and chronic respiratory failure with hypoxia; J85.0 Gangrene and necrosis of lung; J12.82 Pneumonia due to coronavirus disease 2019; Z68.1 Body mass index [BMI] 19.9 or less, adult; R64 Cachexia; E87.1 Hypo-osmolality and hyponatremia; J43.9 Emphysema, unspecified; D64.9 Anemia, unspecified; Z98.890 Other specified postprocedural states; Z87.891 Personal history of nicotine dependence; Z79.899 Other long term (current) drug therapy; Z53.29 Procedure and treatment not carried out because of patient's decision for other reasons
CPT/HCPCS: 0241U; 36415; 71045; 71260; 80048; 80053; 80202; 82270; 83735; 83880; 84484; 85014; 85018; 85025; 85027; 85379; 87040; 87389; 93005; 93010; 94640; 94760; 96365; 96366; 96375; 99285-25; A9270; J0248; J0696; J1650; J2543; J3370; J3475; J7030; J7050; Q9967